=== PATIENT | female | born 1945 | race Caucasian/White ===

== ENCOUNTER 2018-03-20 13:30 | Emergency (ER) | payer OTHER ==
[2018-03-20 15:43] LABS: TROPONIN-I < 0.010 ng/ml (0.000-0.120)
== END 2018-03-20 16:19 | disposition home or self-care (01) ==
LOC: FTE 13:30
DX: J06.9 Acute upper respiratory infection, unspecified (principal); J00 Acute nasopharyngitis [common cold]; J40 Bronchitis, not specified as acute or chronic; R06.02 Shortness of breath
CPT/HCPCS: 36415; 71046; 84484; 93005; 99285-25